=== PATIENT | male | born 1945 | race Caucasian/White ===

== ENCOUNTER 2016-10-27 10:08 | Emergency (ER) | payer OTHER, MEDICARE ==
[~2016-10-27 10:08] MED LIST: ALDACTONE50 M1 PO; AMBIEN10 M1 PO; ASPIRIN81 M1 CH; CLARITIN10 M6 PO; COLACE100 M1 PO; COLCRYS0.6 M1 PO; COUMADIN5 M2 PO; COUMADIN7.5 M1 PO; DEMADEX20 M1 PO; DULCOLAX5 M1 PO; DURAGESIC1 EAC3 TOP; LEXAPRO10 M2 PO; MIRALAX17 G2 PO; NUCYNTA50 M1 PO; POTASSIUM CHLO20 ME3 PO; PROTONIX40 M2 PO; SOTALOL PO; TRAZODONE HCL100 M1 PO; TYLENOL325 M2 PO; UNASYN 3 GM VIAL3 GM IV; VANCOMYCIN HCL500 MG IV; XANAX0.25 M1 PO; ZOCOR10 M1 PO
[2016-10-27] MEDS ORDERED: XANAX0.25 M1 PO (10:50)
[2016-10-27] MEDS ORDERED: COLCHICINE0.6 M2 PO (10:51)
[2016-10-27] MEDS ORDERED: ASPIRIN EC81 MG PO (10:51)
[2016-10-27] MEDS ORDERED: LEXAPRO10 M2 PO (10:53)
[2016-10-27] MEDS ORDERED: DOCUSATE SODIU100 M3 PO (10:53)
[2016-10-27] MEDS ORDERED: DURAGESIC1 EAC3 TOP (10:54)
[2016-10-27] MEDS ORDERED: CLARITIN10 M6 PO (10:54)
[2016-10-27] MEDS ORDERED: PROTONIX40 M2 PO (10:56)
[2016-10-27] MEDS ORDERED: MIRALAX17 G2 PO (10:58)
[2016-10-27] MEDS ORDERED: POTASSIUM CHLO20 ME3 PO (10:58)
[2016-10-27] MEDS ORDERED: ZOCOR10 M1 PO (10:59)
[2016-10-27] MEDS ORDERED: ALDACTONE50 M1 PO (11:00)
[2016-10-27] MEDS ORDERED: SOTALOL PO (11:00)
[2016-10-27] MEDS ORDERED: DEMADEX20 M1 PO (11:01)
[2016-10-27] MEDS ORDERED: COUMADIN5 M2 PO (11:02)
[2016-10-27] MEDS ORDERED: TRAZODONE HCL100 M1 PO (11:02)
[2016-10-27] MEDS ORDERED: AMBIEN10 M1 PO (11:03)
[2016-10-27] MEDS ORDERED: TYLENOL EXTRA500 M1 PO (11:03)
[2016-10-27 11:04] LABS: INR 3.8 INR (0.9-1.1); PROTHROMBIN TIME 46.5 SECONDS (9.0-13.6)
[2016-10-27] MEDS ORDERED: BISACODYL5 M1 PO (11:04)
[2016-10-27] MEDS ORDERED: BISCOLAX10 MG PR (11:05)
[2016-10-27] MEDS ORDERED: NUCYNTA50 M1 PO (11:05)
[2016-10-27] MEDS ORDERED: MILK OF MAGNESIA PO (11:05)
[2016-10-27] MEDS ORDERED: UNASYN 3 GM VIAL3 GM IV (11:08)
[2016-10-27] MEDS ORDERED: VANCOMYCIN HCL10 GM IV (11:12)
[2016-10-27] MEDS ORDERED: CATHFLO ACTIVASE2 MG IVP (11:14)
[2017-03-07] MEDS ORDERED: SYMBICORT 80-41 PUFF INH (12:23)
[2017-03-07] MEDS ORDERED: NITROGLYCERIN0.4 M2 SL (12:24)
[2017-03-07] MEDS ORDERED: VENTOLIN HFA18 G2 PO (12:24)
[2017-03-07] MEDS ORDERED: COLACE100 M1 PO (13:30)
[2017-03-15] MEDS ORDERED: INSPRA PO (12:09)
== END 2016-10-27 12:05 ==
LOC: EDMED 10:08
PROVIDERS: Physician Assistant
PROC: 0W3Q7ZZ Control Bleeding in Respiratory Tract, Via Natural or Artificial Opening (ICD-10-PCS; principal; 2016-10-27)
DX: R04.0 Epistaxis (principal); I25.10 Atherosclerotic heart disease of native coronary artery without angina pectoris; Z86.73 Personal history of transient ischemic attack (TIA), and cerebral infarction without residual deficits; Z86.711 Personal history of pulmonary embolism; Z86.718 Personal history of other venous thrombosis and embolism; Z79.01 Long term (current) use of anticoagulants; Z79.82 Long term (current) use of aspirin; Z79.899 Other long term (current) drug therapy

== ENCOUNTER 2017-01-20 13:21 | Inpatient (IN) | payer OTHER, MEDICARE ==
[~2017-01-20 13:21] MED LIST changes: +ASPIRIN EC81 MG PO; +BISACODYL5 M1 PO; +BISCOLAX10 MG PR; +CATHFLO ACTIVASE2 MG IVP; +COLCHICINE0.6 M2 PO; +DOCUSATE SODIU100 M3 PO; +MILK OF MAGNESIA PO; +TYLENOL EXTRA500 M1 PO; +VANCOMYCIN HCL10 GM IV
[2017-01-20 14:22] LABS: BASO % 0.3 % (0-2); EOS % 3.5 % (0-7); EOSINOPHIL ABSOLUTE COUNT 0.3 tho/cmm (0.0-0.7); HCT-HEMATOCRIT 28.9 % (36.0-53.5); HGB-HEMOGLOBIN 9.1 gm/dl (13.5-17.0); IMMATURE GRANULOCYTES ABSOLUTE 0.07 tho/cmm (0-0.03); IMMATURE GRANULOCYTES PERCENT 0.8 % (0-0.3); LYMPH % 12.3 % (20-45); LYMPH ABSOLUTE COUNT 1.1 tho/cmm (0.8-4.5); MCH (MEAN CORPUSCULAR HGB) 25.9 pg (28.0-32.0); MCHC MEAN CORPUSCULAR HGB CONC 31.5 % (32.0-36.0); MCV (MEAN CELL VOLUME) 82.1 fl (82.0-96.0); MEAN PLATELET VOLUME 9.7 cmc (9.4-12.4); MONO % 9.1 % (0-12); MONOCYTE ABSOLUTE COUNT 0.8 tho/cmm (0.0-1.2); NEUTROPHIL ABSOLUTE COUNT 6.8 tho/cmm (1.6-8.0); NEUTROPHIL-AUTOMATED 6.8 tho/cmm (1.6-8.0); PLATELET COUNT 179 tho/cmm (150-450); RED BLOOD COUNT 3.52 mil/cmm (4.40-5.70); RED CELL DISTRIBUTION WIDTH 18.1 % (12.4-16.4); WHITE BLOOD COUNT 9.2 tho/cmm (4.0-10.0)
[2017-01-20] MEDS ORDERED: COUMADIN5 M2 PO (14:32)
[2017-01-20 14:33] LABS: INR 2.4 INR (0.9-1.1); PROTHROMBIN TIME 28.7 SECONDS (9.0-13.6)
[2017-01-20] MEDS ORDERED: ANORO ELLIPTA1 EAC1 INH (14:45)
[2017-01-20] MEDS ORDERED: ZOCOR5 M1 PO (14:45)
[2017-01-20] MEDS ORDERED: PROSCAR5 M1 PO (14:45)
[2017-01-20] MEDS ORDERED: VITAMIN D35000 UNI3 PO (14:46)
[2017-01-20 14:47] LABS: ALB/GLOB RATIO 0.7 (0.8-2.0); ALKALINE PHOSPHATASE 120 U/L (33-138); ALT/SGPT 22 U/L (12-78); ANION GAP 14 mmol/L (0-20); AST/SGOT 30 U/L (10-40); BILIRUBIN,TOTAL 0.4 mg/dl (0.0-1.5); BLOOD UREA NITROGEN 32 mg/dl (6-24); CALCIUM 8.4 mg/dl (8.5-10.5); CARBON DIOXIDE-VENOUS 29 mmol/L (22-32); CHLORIDE 98 mmol/l (96-110); CREATININE 1.54 mg/dl (0.60-1.30); GLUCOSE 100 mg/dL (70-110); POTASSIUM 4.3 mmol/L (3.7-5.1); SODIUM 137 mmol/L (135-145); eGFR VALUE FOR BLACK 53 mL/Min
[2017-01-20 14:49] LABS: ALBUMIN 3.3 g/dl (3.5-5.0)
[2017-01-20] MEDS ORDERED: POTASSIUM CHLO20 ME3 PO (15:23)
[2017-01-20 16:52] LABS: URINE BILIRUBIN NEGATIVE (NEG); URINE BLOOD NEGATIVE (NEG); URINE GLUCOSE (UA) NEGATIVE (NEG); URINE KETONE NEGATIVE (NEG); URINE LEUKOCYTE ESTERASE NEGATIVE (NEG); URINE NITRITE NEGATIVE (NEG); URINE PROTEIN NEGATIVE (NEG); URINE SPECIFIC GRAVITY 1.005 (1.003-1.030)
[2017-01-20 16:54] LABS: URINE APPEARANCE CLEAR; URINE COLOR PALE YELLOW
[2017-01-20 17:00] LABS: MAGNESIUM 2.3 mg/dl (1.8-2.6)
[2017-01-21 05:30] LABS: BASO % 0.3 % (0-2); EOSINOPHIL ABSOLUTE COUNT 0.4 tho/cmm (0.0-0.7); HCT-HEMATOCRIT 25.8 % (36.0-53.5); HGB-HEMOGLOBIN 8.1 gm/dl (13.5-17.0); IMMATURE GRANULOCYTES ABSOLUTE 0.06 tho/cmm (0-0.03); IMMATURE GRANULOCYTES PERCENT 0.8 % (0-0.3); LYMPH % 19.3 % (20-45); LYMPH ABSOLUTE COUNT 1.5 tho/cmm (0.8-4.5); MCH (MEAN CORPUSCULAR HGB) 25.6 pg (28.0-32.0); MCHC MEAN CORPUSCULAR HGB CONC 31.4 % (32.0-36.0); MCV (MEAN CELL VOLUME) 81.4 fl (82.0-96.0); MONO % 8.3 % (0-12); MONOCYTE ABSOLUTE COUNT 0.6 tho/cmm (0.0-1.2); NEUTROPHILS % 66.3 % (40-80); PLATELET COUNT 143 tho/cmm (150-450); RED BLOOD COUNT 3.17 mil/cmm (4.40-5.70); RED CELL DISTRIBUTION WIDTH 18.1 % (12.4-16.4); WHITE BLOOD COUNT 7.6 tho/cmm (4.0-10.0)
[2017-01-21 05:32] LABS: INR 2.3 INR (0.9-1.1); PROTHROMBIN TIME 27.7 SECONDS (9.0-13.6)
[2017-01-21 05:40] LABS: ANION GAP 11 mmol/L (0-20); BLOOD UREA NITROGEN 36 mg/dl (6-24); CALCIUM 8.4 mg/dl (8.5-10.5); CARBON DIOXIDE-VENOUS 31 mmol/L (22-32); CHLORIDE 96 mmol/l (96-110); CREATININE 1.44 mg/dl (0.60-1.30); GLUCOSE 103 mg/dL (70-110); SODIUM 135 mmol/L (135-145); eGFR VALUE FOR BLACK 57 mL/Min
[2017-01-21 05:46] LABS: POTASSIUM 3.3 mmol/L (3.7-5.1)
[2017-01-21 10:24] LABS: IRON 46 ug/dl (49-181); IRON BINDING CAPACITY 336 ug/dl (250-450)
[2017-01-21 17:20] LABS: IRON 35 ug/dl (49-181); IRON BINDING CAPACITY 347 ug/dl (250-450)
[2017-01-22 06:00] LABS: BASO % 0.3 % (0-2); EOS % 3.7 % (0-7); EOSINOPHIL ABSOLUTE COUNT 0.3 tho/cmm (0.0-0.7); HCT-HEMATOCRIT 25.5 % (36.0-53.5); HGB-HEMOGLOBIN 7.9 gm/dl (13.5-17.0); IMMATURE GRANULOCYTES ABSOLUTE 0.07 tho/cmm (0-0.03); IMMATURE GRANULOCYTES PERCENT 0.9 % (0-0.3); LYMPH % 19.5 % (20-45); LYMPH ABSOLUTE COUNT 1.6 tho/cmm (0.8-4.5); MCH (MEAN CORPUSCULAR HGB) 25.2 pg (28.0-32.0); MCV (MEAN CELL VOLUME) 81.5 fl (82.0-96.0); MONO % 7.9 % (0-12); MONOCYTE ABSOLUTE COUNT 0.6 tho/cmm (0.0-1.2); NEUTROPHIL ABSOLUTE COUNT 5.4 tho/cmm (1.6-8.0); NEUTROPHIL-AUTOMATED 5.4 tho/cmm (1.6-8.0); NEUTROPHILS % 67.7 % (40-80); PLATELET COUNT 142 tho/cmm (150-450); RED BLOOD COUNT 3.13 mil/cmm (4.40-5.70); RED CELL DISTRIBUTION WIDTH 18.2 % (12.4-16.4); WHITE BLOOD COUNT 7.9 tho/cmm (4.0-10.0)
[2017-01-22 06:05] LABS: INR 1.8 INR (0.9-1.1)
[2017-01-22 06:11] LABS: PROTHROMBIN TIME 21.2 SECONDS (9.0-13.6)
[2017-01-22 06:12] LABS: ANION GAP 13 mmol/L (0-20); BLOOD UREA NITROGEN 35 mg/dl (6-24); CALCIUM 8.6 mg/dl (8.5-10.5); CARBON DIOXIDE-VENOUS 33 mmol/L (22-32); CHLORIDE 97 mmol/l (96-110); CREATININE 1.47 mg/dl (0.60-1.30); GLUCOSE 99 mg/dL (70-110); POTASSIUM 3.9 mmol/L (3.7-5.1); SODIUM 139 mmol/L (135-145); eGFR VALUE FOR BLACK 56 mL/Min
[2017-01-23 03:35] LABS: INR 1.7 INR (0.9-1.1); PROTHROMBIN TIME 20.1 SECONDS (9.0-13.6)
[2017-01-23 10:43] LABS: BASO % 0.1 % (0-2); EOS % 1.6 % (0-7); EOSINOPHIL ABSOLUTE COUNT 0.1 tho/cmm (0.0-0.7); HCT-HEMATOCRIT 26.5 % (36.0-53.5); HGB-HEMOGLOBIN 8.3 gm/dl (13.5-17.0); IMMATURE GRANULOCYTES ABSOLUTE 0.05 tho/cmm (0-0.03); IMMATURE GRANULOCYTES PERCENT 0.7 % (0-0.3); LYMPH % 14.2 % (20-45); MCH (MEAN CORPUSCULAR HGB) 25.7 pg (28.0-32.0); MCHC MEAN CORPUSCULAR HGB CONC 31.3 % (32.0-36.0); MEAN PLATELET VOLUME 9.1 cmc (9.4-12.4); MONO % 6.6 % (0-12); MONOCYTE ABSOLUTE COUNT 0.5 tho/cmm (0.0-1.2); NEUTROPHIL ABSOLUTE COUNT 5.4 tho/cmm (1.6-8.0); NEUTROPHIL-AUTOMATED 5.4 tho/cmm (1.6-8.0); NEUTROPHILS % 76.8 % (40-80); PLATELET COUNT 135 tho/cmm (150-450); RED BLOOD COUNT 3.23 mil/cmm (4.40-5.70); RED CELL DISTRIBUTION WIDTH 17.5 % (12.4-16.4); WHITE BLOOD COUNT 7.1 tho/cmm (4.0-10.0)
[2017-01-23 10:55] LABS: ALB/GLOB RATIO 0.8 (0.8-2.0); ALBUMIN 2.9 g/dl (3.5-5.0); ALKALINE PHOSPHATASE 86 U/L (33-138); ALT/SGPT 18 U/L (12-78); ANION GAP 11 mmol/L (0-20); AST/SGOT 20 U/L (10-40); BILIRUBIN,TOTAL 0.5 mg/dl (0.0-1.5); BLOOD UREA NITROGEN 24 mg/dl (6-24); CALCIUM 8.4 mg/dl (8.5-10.5); CARBON DIOXIDE-VENOUS 31 mmol/L (22-32); CHLORIDE 105 mmol/l (96-110); GLUCOSE 104 mg/dL (70-110); POTASSIUM 3.8 mmol/L (3.7-5.1); SODIUM 143 mmol/L (135-145); eGFR VALUE FOR BLACK 71 mL/Min
[2017-01-24 03:32] LABS: BASO % 0.2 % (0-2); EOS % 3.4 % (0-7); EOSINOPHIL ABSOLUTE COUNT 0.2 tho/cmm (0.0-0.7); HGB-HEMOGLOBIN 7.7 gm/dl (13.5-17.0); IMMATURE GRANULOCYTES ABSOLUTE 0.02 tho/cmm (0-0.03); IMMATURE GRANULOCYTES PERCENT 0.3 % (0-0.3); LYMPH % 16.6 % (20-45); LYMPH ABSOLUTE COUNT 1.1 tho/cmm (0.8-4.5); MCH (MEAN CORPUSCULAR HGB) 25.4 pg (28.0-32.0); MCHC MEAN CORPUSCULAR HGB CONC 30.8 % (32.0-36.0); MCV (MEAN CELL VOLUME) 82.5 fl (82.0-96.0); MEAN PLATELET VOLUME 9.3 cmc (9.4-12.4); MONO % 8.4 % (0-12); MONOCYTE ABSOLUTE COUNT 0.6 tho/cmm (0.0-1.2); NEUTROPHIL ABSOLUTE COUNT 4.6 tho/cmm (1.6-8.0); NEUTROPHIL-AUTOMATED 4.6 tho/cmm (1.6-8.0); NEUTROPHILS % 71.1 % (40-80); PLATELET COUNT 129 tho/cmm (150-450); RED BLOOD COUNT 3.03 mil/cmm (4.40-5.70); RED CELL DISTRIBUTION WIDTH 17.7 % (12.4-16.4); WHITE BLOOD COUNT 6.5 tho/cmm (4.0-10.0)
[2017-01-24 03:48] LABS: ANION GAP 12 mmol/L (0-20); BLOOD UREA NITROGEN 16 mg/dl (6-24); CALCIUM 8.1 mg/dl (8.5-10.5); CARBON DIOXIDE-VENOUS 29 mmol/L (22-32); CHLORIDE 102 mmol/l (96-110); CREATININE 1.13 mg/dl (0.60-1.30); GLUCOSE 101 mg/dL (70-110); POTASSIUM 3.7 mmol/L (3.7-5.1); SODIUM 139 mmol/L (135-145); eGFR VALUE FOR BLACK 76 mL/Min
[2017-01-24 04:06] LABS: INR 1.6 INR (0.9-1.1); PROTHROMBIN TIME 18.7 SECONDS (9.0-13.6)
[2017-01-25 04:31] LABS: BASO % 0.3 % (0-2); EOS % 4.6 % (0-7); EOSINOPHIL ABSOLUTE COUNT 0.3 tho/cmm (0.0-0.7); HGB-HEMOGLOBIN 7.8 gm/dl (13.5-17.0); IMMATURE GRANULOCYTES ABSOLUTE 0.03 tho/cmm (0-0.03); IMMATURE GRANULOCYTES PERCENT 0.4 % (0-0.3); LYMPH % 18.3 % (20-45); LYMPH ABSOLUTE COUNT 1.2 tho/cmm (0.8-4.5); MCHC MEAN CORPUSCULAR HGB CONC 31.2 % (32.0-36.0); MCV (MEAN CELL VOLUME) 83.3 fl (82.0-96.0); MEAN PLATELET VOLUME 9.8 cmc (9.4-12.4); MONO % 7.6 % (0-12); MONOCYTE ABSOLUTE COUNT 0.5 tho/cmm (0.0-1.2); NEUTROPHIL ABSOLUTE COUNT 4.6 tho/cmm (1.6-8.0); NEUTROPHIL-AUTOMATED 4.6 tho/cmm (1.6-8.0); NEUTROPHILS % 68.8 % (40-80); PLATELET COUNT 139 tho/cmm (150-450); RED CELL DISTRIBUTION WIDTH 17.7 % (12.4-16.4); WHITE BLOOD COUNT 6.7 tho/cmm (4.0-10.0)
[2017-01-25 04:38] LABS: INR 1.4 INR (0.9-1.1); PROTHROMBIN TIME 16.1 SECONDS (9.0-13.6)
[2017-01-25 04:45] LABS: ANION GAP 10 mmol/L (0-20); BLOOD UREA NITROGEN 14 mg/dl (6-24); CALCIUM 8.3 mg/dl (8.5-10.5); CARBON DIOXIDE-VENOUS 27 mmol/L (22-32); CHLORIDE 105 mmol/l (96-110); CREATININE 1.12 mg/dl (0.60-1.30); GLUCOSE 88 mg/dL (70-110); POTASSIUM 4.1 mmol/L (3.7-5.1); SODIUM 138 mmol/L (135-145); eGFR VALUE FOR BLACK 77 mL/Min
[2017-01-25] MEDS ORDERED: POTASSIUM CHLO10 ME2 PO (17:10)
[2017-01-25] MEDS ORDERED: FEOSOL325 M1 PO (17:17)
[2017-01-25] MEDS ORDERED: LOVENOX120 MG/0.1 SC (17:17)
[2017-03-07] MEDS ORDERED: SYMBICORT 80-41 PUFF INH (12:23)
[2017-03-07] MEDS ORDERED: NITROGLYCERIN0.4 M2 SL (12:24)
[2017-03-07] MEDS ORDERED: VENTOLIN HFA18 G2 PO (12:24)
[2017-03-07] MEDS ORDERED: COLACE100 M1 PO (13:30)
[2017-03-15] MEDS ORDERED: INSPRA PO (12:09)
== END 2017-01-25 21:10 | DRG 812 ==
LOC: EDMED 13:21 → EMR2 17:32 → PCUB 19:29
PROVIDERS: Emergency Medicine; Physician Assistant; Specialist; ADMIT Internal Medicine Cardiovascular Disease
PROC: 0DB88ZX Excision of Small Intestine, Via Natural or Artificial Opening Endoscopic, Diagnostic (ICD-10-PCS; principal; 2017-01-20)
PROC: 0DJD8ZZ Inspection of Lower Intestinal Tract, Via Natural or Artificial Opening Endoscopic (ICD-10-PCS; 2017-01-20)
PROC: 02HV33Z Insertion of Infusion Device into Superior Vena Cava, Percutaneous Approach (ICD-10-PCS; 2017-01-22)
DX: D50.9 Iron deficiency anemia, unspecified (principal); K57.90 Diverticulosis of intestine, part unspecified, without perforation or abscess without bleeding; Z79.01 Long term (current) use of anticoagulants
CPT/HCPCS: C1751; C8929; J1650; J2405; J3475; J3480; J7050; P9016